=== PATIENT | female | born 1980 | race Caucasian/White ===

== ENCOUNTER 2017-03-06 07:02 | Day surgery (SDC) | payer OTHER ==
[~2017-03-06] VITALS: Ht 160 cm; Wt 64.9 kg
[2017-03-06] VITALS (8 sets, daily range): BP systolic 93–109; BP diastolic 48–55
[2017-03-06] MEDS ORDERED: LR 1,000 ML IV SCH ×2 (07:15→11:15)
[2017-03-06] MEDS ORDERED: SCOPOLAMINE 1.5 MG TRANSDERMAL TOP ONE (07:15)
[2017-03-06] MEDS ORDERED: dexameTHASONE 4 MG/ML 1ML VIAL (J1100) As Ordered ONE (07:37)
[2017-03-06] MEDS ORDERED: fentaNYL 100 MCG/2 ML INJECTION (J3010) As Ordered ONE (07:37)
[2017-03-06] MEDS ORDERED: ROCURONIUM BROMIDE 50 MG/5 ML VIAL/SYRINGE As Ordered ONE ×2 (07:37→09:25)
[2017-03-06] MEDS ORDERED: GLYCOPYRROLATE INJ 0.2 MG/ML 2 ML VIAL As Ordered ONE (07:37)
[2017-03-06] MEDS ORDERED: HYDROmorphone HCL 2 MG/ML 1ML VIAL (J1170) As Ordered ONE (07:37)
[2017-03-06] MEDS ORDERED: NEOSTIGMINE 10 MG/10 ML VIAL (J2710) As Ordered ONE (07:37)
[2017-03-06] MEDS ORDERED: PROPOFOL 200 MG/20 ML VIAL As Ordered ONE (07:37)
[2017-03-06] MEDS ORDERED: ONDANSETRON 4MG/2ML VIAL (J2405) As Ordered ONE (07:37)
[2017-03-06] MEDS ORDERED: MIDAZOLAM INJ 2 MG/2 ML VIAL (J2250) As Ordered ONE (07:38)
[2017-03-06 07:40] LABS: MEAN CORPUSCULAR HEMOGLOBIN 22.8 pg (27.0-33.0); MEAN CORPUSCULAR HGB CONC 30.3 g/dl (32.0-36.5); MEAN CORPUSCULAR VOLUME 75.2 fl (80.0-96.0); RED CELL DISTRIBUTION WIDTH 15.9 % (11.5-14.5); WHITE BLOOD COUNT 7.7 10^3/uL (4.0-10.0)
[2017-03-06 07:54] LABS: CONTROL LINE UCG INT CTR LINE PRESENT
[2017-03-06] MEDS ORDERED: MORPHINE 1MG/ML IN 0.9% NACL 100ML IV BAG As Ordered ONE (08:45)
[2017-03-06] MEDS: MEPERIDINE INJ 25 MG/ML VIAL (J2175) IV PRN ×2 (11:08→11:15)
[2017-03-06] MEDS ORDERED: NALOXONE INJ 0.4 MG/1 ML VIAL (J2310) IV PRN (11:15)
[2017-03-06] MEDS ORDERED: METOCLOPRAMIDE INJ 10MG/2ML VIAL (J2765) IV PRN (11:15)
[2017-03-06] MEDS ORDERED: diphenhydrAMINE INJ 50MG/ML VIAL (J1200) IV PRN (11:15)
[2017-03-06] MEDS ORDERED: NALBUPHINE HCL 10 MG/ML AMP (J2300) IV PRN (11:15)
[2017-03-06] MEDS ORDERED: MORPHINE 1MG/ML IN 0.9% NACL 100ML IV BAG IV PRN (11:15)
[2017-03-06] MEDS ORDERED: EPIDURAL/PCA KEYS XX PRN (11:15)
[2017-03-06] MEDS ORDERED: IBUPROFEN 600 MG TAB PO PRN (11:15)
[2017-03-06] MEDS: LR 1,000 ML IV SCH ×2 (11:15→23:54)
[2017-03-06] MEDS ORDERED: PERCOCET 5MG/325MG TAB PO PRN (11:15)
[2017-03-06] MEDS ORDERED: ONDANSETRON 4MG/2ML VIAL (J2405) IV PRN (11:15)
[2017-03-06] MEDS ORDERED: KETOROLAC 30 MG/ML VIAL (J1885) IV PRN (11:15)
[2017-03-06] MEDS ORDERED: fentaNYL 100 MCG/2 ML INJECTION (J3010) IV PRN (11:15)
--- NOTE | 2017-03-06 17:46 | RO ---
DATE OF PROCEDURE: 03/06/2017 PREPROCEDURE DIAGNOSIS: Pain, bleeding and fibroids. POSTPROCEDURE DIAGNOSIS: Pain, bleeding and fibroids. PROCEDURE: Total vaginal hysterectomy with bilateral salpingectomy. The patient retains her ovaries at her request. There was, as noted in the operative report, a repair of a pinch injury of the bowel, there was no perforation, about 2 mm ( total) segment of bowel was pinched in the end of the De Guillen, and this area was oversewn as described. The patient also had cystourethroscopy. SURGEON: Dr. Tiffanie Anguiano PHARMACY ASSOCIATE: Nini Dang ANESTHESIA: General endotracheal anesthesia. DESCRIPTION OF PROCEDURE: Elizabeth was brought to the operating room where sufficient general endotracheal anesthesia was induced, and she was prepped, draped and positioned in the usual sterile fashion. As had been discussed with her preoperatively, she is a 2 with some fibroids that created about a 7-week size uterus and so we did have a consent to use the laparoscope if needed. But, I had a suspicion that under anesthesia it might be possible to accomplish this surgery vaginally and so she was also consented for a vaginal hysterectomy should exam under anesthesia indicate it was a reasonable approach. And so an exam under anesthesia was done and confirmed that we could indeed approach this uterus from below and so the procedure was changed to a total vaginal hysterectomy with bilateral salpingectomy as had been discussed with her. Therefore, once the bladder emptied and a single tooth tenaculum on the anterior and posterior aspect of the cervix and the retractors in place, a circumferential incision was made around the base of the cervix. The cardinal ligaments were isolated, clamped with Humphries clamps, transected and ligated with #0 Vicryl suture. The uterosacrals were then also clamped, transected and ligated and marked for later reattachment to the cuff, which was done especially carefully in this 36-year-old individual. With the posterior reflection of the peritoneum entered, we could feel the fibroid uterus and had several smaller fibroids sort of distorting its shape. The overall shape is not all that huge. The anterior dissection was continued, and the uterus was bulging forward with the fibroid and so the space anteriorly was more limited than posteriorly and this dissection was done both sharply and bluntly. And a decision was made to do cystourethroscopy at the end of the case due to the distortion of the uterus anteriorly and the difficulty in dissecting out this plane, even though it appeared as we worked that we were doing well as far as the bladder goes. We then isolated the uterine vasculature on each side and carefully progressed through it. As we got to the apex, the final clamp on the patient's right side that went over the round and the top of the broad ligament and fallopian tube had a small edge of the bowel. I had thought as we were dissecting that this was the edge of the fallopian tube, but after the clamp was on, as I was sewing I reexamined this and an approximately 1 mm corner fold , resulting in a total of 2 mm segment of small bowel was within the end of the clamp. This did not cut the bowel, and we were able to cut the uterus off the pedicle for easy access. Since this was the last bite on that side, I pushed the uterus back in so that we had a better view, oversewed the pedicle so that we coiuld finish with the uterine blood supply and get that clamp off and out of the way. I held the bowel just with a Seymour so that we could see that area that had been in the clamp. There was no disruption or perforation to the bowel as far as even the peritoneal surface. The visceral peritoneum was not torn. The bowel itself was not torn or perforated, but there was an erythematous region, which must have crush injury, so a decision was made to oversew this area with #3-0 silk and interrupted stitches in two layers, so that the pressure of peristalsis would not be on that layer if it did have a bruise that was weakened and healing. We had no difficulty doing this because we had moved the uterus out of the way (it only was attached at this point on the left side), and there did not appear to be any significant backbleeding because we had had the majority of the uterine vasculature already controlled and just the round and the fallopian tube left on that remaining side. So, we were able to take our time and re-support this area of the bowel, and we were able to watch it with the clamps off and easily see there did not appear to be any other areas of injury to the bowel. We then proceeded to continue the dissection on the patient's left side, so that the uterus could be delivered. We then removed the left fallopian tube. We were able to visualize and palpate the left ovary, which is normal, and we were able to remove the left fallopian tube in its entirety. There was a small paratubal cyst there also that was removed. The pedicles had good hemostasis. We turned our attention back to the right side. That loop of bowel was still sitting there, and we were again able to confirm there did not appear to be any other injury and the resupported area seemed to be in good shape, so we went ahead and pushed that out of the way with a sponge on a stick and then removed the right fallopian tube with the fimbria as well. And, again, we could see the right ovary and also palpate it, and it was normal. So with both ovaries in place, no evidence of disruption of the blood supply to the ovaries and good hemostasis on each of the pedicles, we then did the vaginal angle stitches with #0 Vicryl and we incorporated the uterosacrals as well very carefully in this 36-year-old patient, who, of course, has some years to go in regard to her support. And we were able to get good reattachment with all of that and then after the angle stitches of the uterosacrals were re-secured, we went ahead and closed the cuff in a running locked stitch and then we did a cystourethroscopy, which confirmed and absence of any perforation or significant injury to the bladder, and, of course, there were normal jets of urine bilaterally. The procedure was then ended. Estimated blood loss for the procedure: About 40 mL. Fluid replacement was crystalloid. Complications: There was no perforation of either bowel, bladder or ureters. There was no bladder or ureteral injury, but she did have a pinch injury as described in the body of this dictation, which did not disrupt even the visceral peritoneum. But a decision was made to oversew this area as she recovers from that pinch injury so that the pressure of peristalsis does not put her at risk of a blowout perforation. Subsequently, I also notified her of this injury today. I tried to notify her, but she is medicated, so I do not believe that she will remember that, but I did notify her of this today. Even though they had already been advised to let us know about fevers or nausea, vomiting postoperatively, I asked him to keep extra care out for that. He is aware of the increased risk for bowel difficulty as a result of this. That said, I expect that this will heal without difficulty. There was no perforation or leakage of intestinal contents. Therefore, I do not expect there to be any difficulty with that. Condition and Disposition: Elizabeth tolerated the procedure well and was recovering in the recovery room in good condition. HOLLAND
[2017-03-07 02:00] VITALS: BP 95/55
[2017-03-07 06:00] VITALS: BP 108/53
[2017-03-07] MEDS ORDERED: NORCO, ANEXSIA 5/325MG TABLET (HYDROcodone/ACETAMINOPHEN) PO PRN (06:00)
[2017-03-07 07:06] LABS: MEAN CORPUSCULAR HEMOGLOBIN 23.3 pg (27.0-33.0); MEAN CORPUSCULAR HGB CONC 30.9 g/dl (32.0-36.5); MEAN CORPUSCULAR VOLUME 75.5 fl (80.0-96.0); RED CELL DISTRIBUTION WIDTH 16.2 % (11.5-14.5); WHITE BLOOD COUNT 15.1 10^3/uL (4.0-10.0)
[2017-03-07] MEDS: LR 1,000 ML IV SCH (08:23)
[2017-03-07 10:00] VITALS: BP 105/59
[2017-03-07] MEDS ORDERED: NORC1TAB4 PO (13:27)
[2017-03-07] MEDS ORDERED: MOTR200T44 PO (13:27)
[2017-03-07 14:00] VITALS: BP 104/59
== END 2017-03-07 16:20 | disposition home or self-care (01) ==
LOC: M SDC 07:02 → M MSPAV 12:10 → M SDC 03-07 16:20
PROVIDERS: ATTEND Obstetrics & Gynecology
DX: N92.0 Excessive and frequent menstruation with regular cycle (principal); N94.6 Dysmenorrhea, unspecified; K91.72 Accidental puncture and laceration of a digestive system organ or structure during other procedure; D25.0 Submucous leiomyoma of uterus; D25.1 Intramural leiomyoma of uterus; Z88.0 Allergy status to penicillin; Z88.2 Allergy status to sulfonamides
CPT/HCPCS: 36415; 44799; 58262; 84703; 85027; 86850; 86900; 86901; 88307; J1100; J1170; J1885; J2175; J2250; J2405; J2710; J3010

== ENCOUNTER → 2017-03-14 | Outpatient (REF) | payer OTHER ==
[~2017-03-14] MED LIST: MOTR200T44 PO; NORC1TAB4 PO
[2017-03-14 18:09] LABS: CALCIUM OXALATE CRYSTALS SMALL
== END ==
LOC: M LAB REF 16:37
PROVIDERS: ATTEND Nurse Practitioner Women's Health
DX: N39.0 Urinary tract infection, site not specified (principal)